=== PATIENT | female | born 1955 | race Caucasian/White ===

== ENCOUNTER 2018-09-17 10:20 | Emergency (ER) | payer MEDICAID, SELFPAY ==
[2018-09-17 10:41] VITALS: BP 122/77; PULSE 67; RESP 20; TEMP 36.2; O2SAT 100; BMI 25.2
[2018-09-17 12:19] LABS: Add Manual Diff / Slide Review NO; Basophils Percent Auto 0.5 % (0-2); Eosinophils Percent Auto 1.3 % (2-4); Hematocrit 40.2 % (36-46); Hemoglobin 13.7 g/dL (12.0-16.0); Lymphocytes Percent Auto 39.9 % (25-40); Mean Corpuscular Hemoglobin 32.5 PG (26-34); Mean Corpuscular Volume 95.5 fL (80-100); Neutrophils Absolute Auto 3900 /uL (1500-7000); Neutrophils Percent Auto 53.3 % (50-75); Platelet Count 310 X10^3/uL (150-400); Red Blood Cell Count 4.21 X10^6/uL (4.0-5.2); White Blood Cell Count 7.2 X10^3/uL (4.5-11.0)
[2018-09-17 12:33] LABS: Alanine Aminotransferase 20 IU/L (9-52); Albumin 4.4 g/dL (3.5-5.0); Albumin Globulin Ratio 1.5 (1.0-2.8); Alkaline Phosphatase 65 U/L (38-126); Aspartate Aminotransferase 21 IU/L (14-36); BUN Creatinine Ratio 22.2 (6-22); Bilirubin Total 0.3 mg/dL (0.2-1.3); Blood Urea Nitrogen 20 mg/dL (7-17); Calcium 9.5 mg/dL (8.4-10.2); Carbon Dioxide 24 mmol/L (22-32); Chloride 105 mmol/L (98-107); Estimated Glomerular Filt Rate > 60.0 mL/min (>60); Globulin 2.9 g/dL (1.7-4.1); Glucose 89 mg/dL (80-110); HEMOLYSIS < 15 (0-50); Lipase 523 U/L (23-300); Potassium 4.1 mmol/L (3.4-5.1); Sodium 142 mmol/L (137-145); Total Protein 7.3 g/dL (6.3-8.2)
--- NOTE | 2018-09-17 12:44 | ED_ITS ---
HPI - Abdominal Pain General Chief Complaint: Abdominal Pain Stated Complaint: TEST Time Seen by Provider: 09/17/18 11:37 Source: patient Mode of arrival: ambulatory Limitations: no limitations History of Present Illness HPI narrative: Patient is 62-year-old female who presents with abdominal all bloating. She says she feels like she is and is requesting a test. She denies any vaginal bleeding. She says that she has had a partial hysterectomy and she has not had a menstrual period and the last 5 years. However she is sexually active with 1 partner. She denies any vaginal discharge or discomfort. She has no painful or frequent urination. She denies nausea or vomiting. She has been having regular bowel movements. Have explained to her that it is very unlikely that she is but I am happy to test if she wishes. She is also requesting we do one. Related Data Home Medications Medication Instructions Recorded Confirmed alprazolam 1 mg PO TIDP PRN #0 07/06/16 zolpidem 5 mg PO HS #0 07/06/16 meloxicam [Mobic] 15 mg PO AMCC #0 01/05/17 oxycodone [OxyContin] 5 mg #0 01/05/17 sertraline 25 mg PO QDAY #0 01/05/17 topiramate [Trokendi XR] 100 mg PO QDAY #0 01/05/17 Allergies Allergy/AdvReac Type Severity Reaction Status Date / Time haloperidol [From HALDOL] Allergy Unknown Verified 09/17/18 10:45 ketorolac [From TORADOL] Allergy Unknown Verified 09/17/18 10:45 sumatriptan [SUMATRIPTAN] Allergy Unknown Verified 09/17/18 10:45 Review of Systems Review of Systems GENERAL: Denies chills, fatigue, malaise, fever, sweats, travel HEENT: Denies sinus pain, ear pain, sore throat, difficulty swallowing, neck pain RESPIRATORY: Denies dyspnea, cough, wheezing, hemoptysis, sputum. CARDIOVASCULAR: Denies chest pain, palpitations, orthopnea, edema GASTROINTESTINAL: See HPI : Denies dysuria, frequency, incontinence, hematuria, urinary retention, flank pain. MUSCULOSKELETAL: Denies weakness, joint pain, or bony pain SKIN: No rash, no erythema, no pruritus NEUROLOGIC: Denies weakness, dizziness, headache, numbness, change in speech, confusion PSYCHIATRIC: No concerning psychosocial issues. 12 point review of systems is negative except for those stated above and HPI PFSH Medical History H/O: hysterectomy (Acute) Social History Smoking Status: Current every day smoker Exam Initial Vital Signs Initial Vital Signs: Vital Signs Temperature 97.2 F L 09/17/18 10:41 Pulse Rate 67 09/17/18 10:41 Respiratory Rate 20 09/17/18 10:41 Blood Pressure 122/77 09/17/18 10:41 Pulse Oximetry 100 09/17/18 10:41 GENERAL: Alert pleasant female no acute distress HEENT: Head atraumatic,EOMI, pupils reactive, neck is supple CARDIOVASCULAR: Regular rate and rhythm without murmurs, rubs or gallops. RESPIRATORY: Breath sounds equal bilaterally, no wheezes rales or rhonchi. ABDOMEN: Soft, mild lower abdominal discomfort no guarding no rebound EXTREMITIES: Normal range of motion, no clubbing or edema. Neurovascularly intact NEUROLOGICAL: Alert and oriented x4.Normal gait and speech. Cranial nerves II through XII grossly intact. SKIN: Warm, dry, no laceration, no petechiae, no rashes or lesions. Course Orders Ordered: ED Orders 09/17/18 12:02 Complete Blood Count AUTO DIFF Stat Comprehensive Metabolic Panel Stat Lipase Stat Vital Signs - 8 hr 09/17/18 10:41 09/17/18 12:54 Temperature 97.2 F L Pulse Rate 67 57 L Respiratory Rate 20 14 Blood Pressure 122/77 Blood Pressure [Right Arm] 137/68 Pulse Oximetry 100 98 MDM - Abdominal Pain Lab Data Attestation: I reviewed the patient's lab results. Result diagrams: 09/17/18 12:02 09/17/18 12:02 Lab Results 09/17/18 09/17/18 Range/Units 12:02 12:02 WBC 7.2 (4.5-11.0) X10^3/uL RBC 4.21 (4.0-5.2) X10^6/uL Hgb 13.7 (12.0-16.0) g/dL Hct 40.2 (36-46) % MCV 95.5 (80-100) fL MCH 32.5 (26-34) PG MCHC 34.0 (30-36) % RDW 12.0 (11.6-14.8) % Plt Count 310 (150-400) X10^3/uL Neut % (Auto) 53.3 (50-75) % Lymph % (Auto) 39.9 (25-40) % Elbert % (Auto) 5.0 (3-14) % Eos % (Auto) 1.3 L (2-4) % Baso % (Auto) 0.5 (0-2) % Neut # (Auto) 3900 (2989-4460) /uL Sodium 142 (137-145) mmol/L Potassium 4.1 (3.4-5.1) mmol/L Chloride 105 (98-107) mmol/L Carbon Dioxide 24 (22-32) mmol/L BUN 20 H (7-17) mg/dL Creatinine 0.90 (0.52-1.04) mg/dL Estimated GFR > 60.0 (>60) mL/min BUN/Creatinine Ratio 22.2 H (6-22) Glucose 89 (80-110) mg/dL Calcium 9.5 (8.4-10.2) mg/dL Total Bilirubin 0.3 (0.2-1.3) mg/dL AST 21 (14-36) IU/L ALT 20 (9-52) IU/L Alkaline Phosphatase 65 (38-126) U/L Total Protein 7.3 (6.3-8.2) g/dL Albumin 4.4 (3.5-5.0) g/dL Globulin 2.9 (1.7-4.1) g/dL Albumin/Globulin Ratio 1.5 (1.0-2.8) Lipase 523 H (23-300) U/L Point of care testing: Point of Care Testing Test Results Negative Urine Dip Bedside Urine Glucose Negative Bedside Urine Bilirubin - Negative Bedside Urine Ketone - Negative Urine Specific [place] 1.015 Bedside Urine Occult Blood - Negative Bedside Urine pH 5.5 Bedside Urine Protein - Negative Bedside Urine Urobilinogen - Negative Bedside Urine Nitrite - Negative Bedside Urine Leukocytes - Negative Esterase POC requested by patient MDM Narrative Medical decision making narrative: Patient tolerating oral fluids. Mildly elevated lipase no other lab abnormality. Discussed with her that she may need abdominal CT. However at this time she would like to go home. We discussed that she needs to increase her fluids. I discussed all findings with the patient. Education has been performed regarding treatment plan, diagnosis, warning signs and symptoms and all concerns have been addressed. Verbally agree with and understood all of the above. Discharge Plan Departure Patient Disposition: Home Clinical Impression: Abdominal pain Discharge Date/Time: 09/17/18 13:15 Interventions: ED Discharge Assessment Last Done: 09/17/18 13:12 Instructions: Acute Pancreatitis, Acute Abdominal Pain Activity Restrictions/Additional Instructions: *You have been diagnosed with abdominal pain *What to do: test is negative. You do need to make sure you increase her fluids. You have slightly elevated lipase which can be early sign of pancreatitis *Continue to take medications as directed *Follow up with your primary care provider in 2-3 days *Return to ER if you should have increasing pain, persistent vomiting or any new , worsening or concerning symptoms Prescriptions: No Action zolpidem 5 MG tablet 5 mg PO HS Qty: 0 RF: 0 alprazolam 0.25 MG tablet 1 mg PO TIDP PRNQty: 0 RF: 0 meloxicam [Mobic] 15 MG tablet 15 mg PO AMCC Qty: 0 RF: 0 sertraline 25 MG tablet 25 mg PO QDAY Qty: 0 RF: 0 topiramate [Trokendi XR] 100 MG capsule,extended release 24hr 100 mg PO QDAY Qty: 0 RF: 0 oxycodone [OxyContin] 40 MG tablet,oral only,ext.rel.12 hr 5 mg Qty: 0 RF: 0 Referrals: Gissell Springer DO [Primary Care Provider] -
[2018-09-17 12:54] VITALS: BP 137/68; PULSE 57; RESP 14; O2SAT 98
== END 2018-09-17 13:15 | disposition home or self-care (01) ==
PROVIDERS: Emergency Provider Emergency Medicine; Family Provider Nutritionist; PCP Family Medicine
DX: R10.9 Unspecified abdominal pain (principal)
CPT/HCPCS: 36591; 80053; 81003; 81025; 83690; 85025; 99282; 99283

== ENCOUNTER → 2018-12-26 12:01 | Outpatient (CLI) | payer OTHER, SELFPAY ==
--- NOTE | 2018-12-26 | DI.RAD.S_ITS ---
PROCEDURE: XR KNEE LT 3V INDICATIONS: KNEE PAIN TECHNIQUE: 3 views of the knee were acquired. COMPARISON: [facility], CR, KNEE 3V LEFT, 04/16/2009, 13:04. MR, KNEE LT W/O CONTRAST, 07/13/2009, 8:10. [facility], CR, KNEE 3V LEFT, 07/10/2009, 10:41. FINDINGS: Bones: No fractures or dislocations. No suspicious bony lesions. There are post surgical changes for ACL repair. Moderate secondary osteoarthritis is present in the left knee, increased since the last exam. Soft tissues: Small joint effusion. No suspicious soft tissue calcifications. IMPRESSION: 1. Postsurgical changes. 2. Moderate osteoarthritis. 3. Small knee joint effusion. Dictated by: Elaine Eastman M.D. on 12/26/2018 at 16:53 Approved by: Elaine Eastman M.D. on 12/26/2018 at 16:56
--- NOTE | 2018-12-26 | DI.RAD.S_ITS ---
PROCEDURE: XR KNEE RT 3V INDICATIONS: KNEE PAIN TECHNIQUE: 3 views of the knee were acquired. COMPARISON: None. FINDINGS: Bones: No fractures or dislocations. No suspicious bony lesions. Soft tissues: No joint effusion. No suspicious soft tissue calcifications. IMPRESSION: Normal for age. Dictated by: Elaine Eastman M.D. on 12/26/2018 at 16:56 Approved by: Elaine Eastman M.D. on 12/26/2018 at 16:57
== END ==
PROVIDERS: PCP Family Medicine; Visit Provider Family Medicine
DX: M25.561 Pain in right knee (principal); M25.562 Pain in left knee; M17.12 Unilateral primary osteoarthritis, left knee; M25.462 Effusion, left knee
CPT/HCPCS: 73562

== ENCOUNTER 2019-06-20 09:33 | Emergency (ER) | payer OTHER, MEDICAID, SELFPAY ==
[2019-06-20 09:41] VITALS: BP 115/78; PULSE 85; RESP 16; TEMP 36.7; O2SAT 97; BMI 48.4
--- NOTE | 2019-06-20 09:52 | ED_ITS ---
HPI - Psych General Chief Complaint: Psychiatric Symptoms Stated Complaint: depression,anxiety Time Seen by Provider: 06/20/19 09:43 Source: patient Mode of arrival: Ambulatory Limitations: no limitations History of Present Illness HPI Narrative: Patient is a 63-year-old female here for evaluation of depression, anxiety and trouble sleeping. She states the symptoms have been going on for the past 2 months or longer however the past 2 months have been especially refer her because her aunt and father both unexpectedly. Her mother lives in [place]. States she had moved back to [place]. She states she has been told by her roommates that she needs to move out in find other living situations. She denies any alcohol or drug use. Denies any SI or HI. She is not currently on any medications. [facility] She has not seen her primary provider. She does not have a counselor. States she has been on anxiety medications in the past but nothing currently. Patient states that she does not have access defines or rides to get to any of her appointments. Related Data Home Medications Medication Instructions Recorded Confirmed alprazolam 1 mg PO TIDP PRN #0 07/06/16 01/21/19 zolpidem 5 mg PO HS #0 07/06/16 01/21/19 meloxicam [Mobic] 15 mg PO AMCC #0 01/05/17 01/21/19 oxycodone [OxyContin] 5 mg #0 01/05/17 01/21/19 sertraline 25 mg PO QDAY #0 01/05/17 01/21/19 topiramate [Trokendi XR] 100 mg PO QDAY #0 01/05/17 01/21/19 Previous Rx's Medication Instructions Recorded trazodone 50 mg PO BEDTIME PRN #10 tab 06/20/19 Allergies Allergy/AdvReac Type Severity Reaction Status Date / Time haloperidol [From HALDOL] Allergy Unknown Verified 01/21/19 12:02 ketorolac [From TORADOL] Allergy Unknown Verified 01/21/19 12:02 sumatriptan [SUMATRIPTAN] Allergy Unknown Verified 01/21/19 12:02 Review of Systems Constitutional Constitutional: Denies fever(s) Cardiovascular Cardiovascular: Denies chest pain and Denies dyspnea Respiratory Respiratory: Denies dyspnea Gastrointestinal Gastrointestinal: Denies abdominal pain Musculoskeletal Musculoskeletal: Denies myalgias and Denies arthralgias Integumentary/Breasts Skin/Breast: Denies rash Neurologic Neurologic: Reports behavioral changes Comments: Depression, anxiety, trouble sleeping Psychiatric Psychiatric: Reports anxiety, Reports behavioral changes, Reports depression, Denies homicidal ideation and Denies suicidal ideation Comments: Trouble sleeping Hematologic/Lymphatic Hematologic/Lymphatic: Denies easy bleeding and Denies easy bruising [facility] Medical History Anxiety (Acute) Depression (Acute) H/O: hysterectomy (Acute) Social History Smoking Status: Current every day smoker Social History Smoking Status: Current every day smoker Exam Initial Vital Signs Initial Vital Signs: Vital Signs Temperature 98.0 F 06/20/19 09:41 Pulse Rate 85 06/20/19 09:41 Respiratory Rate 16 06/20/19 09:41 Blood Pressure 115/78 06/20/19 09:41 Pulse Oximetry 97 06/20/19 09:41 Const General: well developed and well groomed Orientation: alert, awake and oriented x3 Resp Effort & Inspection: normal respiratory effort Cardio Rate: regular rate Skin Lesions: no lesions Rashes: no rashes Neuro General: alert and awake Cognition: normal cognition Speech: speech normal Extrem General: No edema Psych Appearance: grossly normal and disheveled Mood: anxious mood and irritable mood Affect: sad Attitude: cooperative Thought Process: normal Thought Content: no homicidality and suicidality Judgment: judgment good Course Vital Signs Vital signs: Vital Signs - 8 hr 06/20/19 09:41 Temperature 98.0 F Pulse Rate 85 Respiratory Rate 16 Blood Pressure 115/78 Pulse Oximetry 97 MDM - Psych MDM Narrative Medical decision making narrative: Patient is not suicidal not homicidal, alert oriented x3 and in my opinion is capacity to make decisions. Not intoxicated. Here asking for help with sleeping. She gave multiple reasons why she has not been able to follow up with her primary doctor to include not having a chance to see him because she is moving, because she does not have the funds or the rides to get to any of her appointments. I tried to explain to the patient that unfortunately I do not have access to establish counselors with her. I did offer her medications to include depression/anxiety and sleep medications. She stated that she did not feel that she needed depression or anxiety medicines just a medicine to help her sleep. I did offer her trazodone. She made multiple comments about how she was hoping to ?avoid the financial ?aspect of the medications. I informed her that unfortunately we do not have these medications to give her for free. 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 I again asked her what I could do for here here in the emergency department and she stated ?I do not know? and ?whatever you decide ?I did offer her resources of pamphlets for information in the local area however the patient declined this. She did accept the prescription for the trazodone. I apologize that we did not have other sources here in the emergency department to help her with her symptoms. Patient seemed very upset. Discharge Plan Departure Patient Disposition: Home Clinical Impression: Sleep trouble Depression Qualifiers: Depression Type: unspecified Qualified Code(s): F32.9 - Major depressive disorder, single episode, unspecified Instructions: Having Trouble Sleeping?, Insomnia (Alternative Therapy) Activity Restrictions/Additional Instructions: I am sorry that we could not help you further out of the emergency department. You can fill the medication and take them as needed as directed. I do recommend you contact her primary provider and/or the [facility] to help you establish a therapist in the area. You can also contact 360 talk with the health resource coronary here at the hospital. Return to the emergency department for any new symptoms. Prescriptions: New trazodone 50 mg tablet 50 mg PO BEDTIME PRN (Reason: insomnia) Qty: 10 RF: 0 No Action zolpidem 5 MG tablet 5 mg PO HS Qty: 0 RF: 0 alprazolam 0.25 MG tablet 1 mg PO TIDP PRNQty: 0 RF: 0 meloxicam [Mobic] 15 MG tablet 15 mg PO AMCC Qty: 0 RF: 0 sertraline 25 MG tablet 25 mg PO QDAY Qty: 0 RF: 0 topiramate [Trokendi XR] 100 MG capsule,extended release 24hr 100 mg PO QDAY Qty: 0 RF: 0 oxycodone [OxyContin] 40 MG tablet,oral only,ext.rel.12 hr 5 mg Qty: 0 RF: 0 Referrals: Mervat Chase MD [Primary Care Provider] -
== END 2019-06-20 10:07 | disposition home or self-care (01) ==
PROVIDERS: Emergency Provider Emergency Medicine; PCP Family Medicine
DX: G47.9 Sleep disorder, unspecified (principal); F32.9 Major depressive disorder, single episode, unspecified
CPT/HCPCS: 99282; 99283

== ENCOUNTER → 2019-08-08 08:04 | Outpatient (CLI) | payer OTHER, MEDICAID, SELFPAY ==
[2019-08-08 08:58] LABS: Add Manual Diff / Slide Review NO; Basophils Absolute Auto 0 /uL (0-100); Basophils Percent Auto 0.4 % (0-2); Eosinophils Absolute Auto 100 /uL (0-450); Eosinophils Percent Auto 2.2 % (2-4); Hematocrit 38.6 % (36-46); Hemoglobin 13.1 g/dL (12.0-16.0); Lymphocytes Absolute Auto 2900 /uL (1100-4500); Lymphocytes Percent Auto 48.9 % (25-40); Mean Corpuscular Hemoglobin 32.4 PG (26-34); Mean Corpuscular Volume 95.2 fL (80-100); Monocytes Absolute Auto 300 /uL (0-900); Monocytes Percent Auto 4.7 % (3-14); Neutrophils Absolute Auto 2600 /uL (1500-7000); Neutrophils Percent Auto 43.8 % (50-75); Platelet Count 348 X10^3/uL (150-400); Red Blood Cell Count 4.05 X10^6/uL (4.0-5.2); Red Cell Distribution Width 12.3 % (11.6-14.8); White Blood Cell Count 5.9 X10^3/uL (4.5-11.0)
[2019-08-08 09:18] LABS: Alanine Aminotransferase 17 IU/L (<35); Albumin 3.9 g/dL (3.5-5.0); Albumin Globulin Ratio 1.5 (1.0-2.8); Alkaline Phosphatase 75 U/L (38-126); Aspartate Aminotransferase 31 IU/L (14-36); Bilirubin Total 0.3 mg/dL (0.2-1.3); Blood Urea Nitrogen 18 mg/dL (7-17); Calcium 9.4 mg/dL (8.4-10.2); Carbon Dioxide 23 mmol/L (22-32); Chloride 105 mmol/L (98-107); Cholesterol 286 mg/dL (140-199); Estimated Glomerular Filt Rate 56.4 mL/min (>60); Globulin 2.6 g/dL (1.7-4.1); Glucose 127 mg/dL (80-110); HDL Cholesterol 72 mg/dL (40-60); HEMOLYSIS < 15 (0-50); LDL Cholesterol Calculated 191 mg/dL (<100); Potassium 4.7 mmol/L (3.4-5.1); Sodium 137 mmol/L (137-145); Total Protein 6.5 g/dL (6.3-8.2); Triglycerides 114 mg/dL (35-150)
[2019-08-08 09:34] LABS: Free T3, Triiodothyronine Free 3.76 pg/mL (2.77-5.27); Free T4, Direct Thyroxine 0.72 ng/dL (0.78-2.19)
[2019-08-08 09:48] LABS: Thyroid Stimulating Hormone 1.83 uIU/mL (0.47-4.68)
== END ==
PROVIDERS: PCP Family Medicine; Visit Provider Nurse Practitioner
DX: Z00.00 Encounter for general adult medical examination without abnormal findings (principal); R63.4 Abnormal weight loss
CPT/HCPCS: 36415; 80053; 80061; 84439; 84443; 84481; 85025

== ENCOUNTER 2024-04-22 17:06 | Emergency (ER) | payer OTHER, SELFPAY ==
[2024-04-22 17:17] VITALS: BP 127/63; PULSE 69; RESP 16; TEMP 36.2; O2SAT 98; BMI 18.4
== END 2024-04-22 18:20 | disposition left against medical advice (07) ==
PROVIDERS: Emergency Provider Emergency Medicine; PCP Nurse Practitioner
CPT/HCPCS: 99281

== ENCOUNTER 2024-04-30 09:33 | Emergency (ER) | payer OTHER, SELFPAY ==
[2024-04-30 09:34] VITALS: BP 131/61; PULSE 65; RESP 14; TEMP 36.6; O2SAT 100; BMI 21.4
[2024-04-30 09:37] VITALS: PULSE 60; O2SAT 100
[2024-04-30 09:39] VITALS: BP 113/55; PULSE 59; O2SAT 100
[2024-04-30 09:45] VITALS: BP 148/65; PULSE 66; O2SAT 98
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
[2024-04-30] MEDS: KETOROLAC 30 MG/ML VIAL IM (11:07)
[2024-04-30 11:15] VITALS: BP 120/60; PULSE 62; RESP 18; O2SAT 98
== END 2024-04-30 11:15 | disposition home or self-care (01) ==
PROVIDERS: Emergency Provider Emergency Medicine; PCP Nurse Practitioner
DX: R51.9 Headache, unspecified (principal)
CPT/HCPCS: 96372; 99283; J1885